=== PATIENT | female | born 1980 | race Caucasian/White ===

== ENCOUNTER 2017-04-23 12:22 | Inpatient (IN) | payer OTHER ==
[2017-04-23] MEDS ORDERED: BRETHINE SUB-Q PRN (13:12)
[2017-04-23] MEDS ORDERED: BRETHINE IVP PRN (13:12)
[2017-04-23] MEDS ORDERED: ePHEDrine SULFATE IV PRN ×2 (13:12→15:10)
--- NOTE | 2017-04-23 13:18 | History and Physical Report ---
History of Present Illness Date of examination: 04/23/17 Date of admission: 04/23/17 Chief complaint: 40 weeks with contractions. History of present illness: Patient is a 36 year old , LMP 07/17/16, EDC 04/23/17 at 40 weeks who presented to triage complaining of having contractions since 5 AM today. She denies any fluid leakage or bleeding. She reports good movement. tracing is CAT 1. She receives PNC at [facility] clinic. Past History Past Surgical History: no surgical history Social history: no significant social history - Obstetrical History Expected Date of Delivery: 04/23/17 Actual Gestation: 40 Week(s) 0 Day(s) : 4 Para: 2 Spontaneous Abortions: 1 Number of Living Children: 2 Medications and Allergies Allergies Allergy/AdvReac Type Severity Reaction Status Date / Time No Known Allergies Allergy Unverified 04/23/17 12:59 - Vital Signs Vital signs: Vital Signs Pulse BP 77 114/55 04/23/17 12:50 04/23/17 12:50 Temp Pulse Resp BP Pulse Ox 98.8 F 77 18 114/55 04/23/17 12:51 04/23/17 12:50 04/23/17 12:51 04/23/17 12:50 - Physical Exam Cardiovascular: Normal S1, Normal S2 Lungs: Positive: Clear to auscultation Vulva: both: normal Deep Tendon Reflex Grade: Normal +2 - Obstetrical FHR: category 1 Uterine Contraction Monitor Mode: External Cervical Dilatation: 7 Cervical Effacement Percentage: 90 station: -2 Uterine Contraction Pattern: Regular Results All other labs normal. Assessment and Plan - Patient Problems (1) 40 weeks gestation of Current Visit: Yes Status: Acute (2) Active labor Current Visit: Yes Status: Acute Plan to address problem: Admit to labor floor. Routine admitting labs. IV fluid. and toco monitoring. Anticipate . (3) Anemia Current Visit: Yes Status: Acute (4) Advanced maternal age (AMA) in Current Visit: Yes Status: Acute
[2017-04-23 13:53] LABS: Hematocrit 28.6 % (30.3-42.9); Hemoglobin 8.5 gm/dl (10.1-14.3); Mean Corpuscular HGB Conc 30 % (30-34); Platelet Count 484 K/mm3 (140-440); Red Blood Count 4.27 M/mm3 (3.65-5.03)
[2017-04-23 13:57] LABS: Mean Corpuscular Hemoglobin 20 pg (28-32); Mean Corpuscular Volume 67 fl (79-97); Red Cell Distribution Width 23.4 % (13.2-15.2)
[2017-04-23] MEDS ORDERED: PITOCin/NS 30 UNIT/500ML 30 UNITS/500 ML BAG IV SCH (14:00)
[2017-04-23] MEDS ORDERED: LACTATED RINGERS 1,000 ML IV SCH (14:00)
[2017-04-23] MEDS ORDERED: PITOCin/NS 20 UNIT/1000ML DRIP 20 UNITS/1,000 ML BAG IV SCH ×2 (14:00→20:00)
[2017-04-23] MEDS ORDERED: XYLOCAINE 2% INFILTRATI ONE (14:00)
[2017-04-23] MEDS ORDERED: NARCAN 2 MG/2 ML IV PRN (15:10)
--- NOTE | 2017-04-23 15:12 | Anesthesia Consultation ---
Anesthesia Consult and Med Hx Date of service: 04/23/17 - Airway Anesthetic Teeth Evaluation: Good ROM Head & Neck: Adequate Mental/Hyoid Distance: Adequate Mallampati Class: Class I Intubation Access Assessment: Good - Pulmonary Exam CTA: Yes - Cardiac Exam Cardiac Exam: RRR - Pre-Operative Health Status ASA Pre-Surgery Classification: ASA2 - Pulmonary Hx Asthma: No COPD: No Hx Pneumonia: No - Cardiovascular System Hx Hypertension: No - Central Nervous System Hx Seizures: No Hx Psychiatric Problems: No - Endocrine Hx Renal Disease: No Hx End Stage Renal Disease: No Hx Hypothyroidism: No Hx Hyperthyroidism: No - Hematic Hx Anemia: Yes Hx Sickle Cell Disease: No - Other Systems Hx Alcohol Use: No
--- NOTE | 2017-04-23 16:33 | Progress Note ---
Assessment and Plan - Patient Problems (1) 40 weeks gestation of Current Visit: Yes Status: Acute (2) Active labor Current Visit: Yes Status: Acute Plan to address problem: AROM perfomed. Clear fluid. Continue and toco monitoring. Anticipate . (3) Anemia Current Visit: Yes Status: Acute Qualifiers: Anemia type: iron deficiency (4) Advanced maternal age (AMA) in Current Visit: Yes Status: Acute Subjective - Subjective Date of service: 04/23/17 Principal diagnosis: Active labor Interval history: Patient is a 36 year old , LMP 07/17/16, EDC 04/23/17 at 40 weeks who was admitted for active labor. Tracing has been CAT1. [place]: Q2-3 mins. Cervix: 8cm/100/-2. AROM performed, clear fluid. Objective - Vital Signs Vital Signs: Vital Signs - 12hr 04/23/17 04/23/17 04/23/17 12:50 12:51 13:59 Temperature 98.8 F Pulse Rate 77 79 Respiratory 18 Rate Blood Pressure 114/55 O2 Sat by Pulse 96 Oximetry 04/23/17 04/23/17 04/23/17 14:04 14:09 14:14 Temperature Pulse Rate 77 80 72 Respiratory Rate Blood Pressure O2 Sat by Pulse 97 96 96 Oximetry 04/23/17 04/23/17 04/23/17 14:19 14:24 14:29 Temperature Pulse Rate 74 72 79 Respiratory Rate Blood Pressure O2 Sat by Pulse 97 97 96 Oximetry 04/23/17 04/23/17 04/23/17 14:34 14:39 14:44 Temperature Pulse Rate 77 76 77 Respiratory Rate Blood Pressure O2 Sat by Pulse 97 96 96 Oximetry 04/23/17 04/23/17 04/23/17 14:49 14:50 14:54 Temperature Pulse Rate 84 84 83 Respiratory Rate Blood Pressure O2 Sat by Pulse 95 94 96 Oximetry 04/23/17 04/23/17 04/23/17 14:56 14:59 15:03 Temperature Pulse Rate 88 86 79 Respiratory Rate Blood Pressure O2 Sat by Pulse 94 96 94 Oximetry 04/23/17 04/23/17 04/23/17 15:04 15:09 15:10 Temperature Pulse Rate 84 72 83 Respiratory Rate Blood Pressure O2 Sat by Pulse 96 97 93 Oximetry 04/23/17 04/23/1718 15:14 15:17 15:21 Temperature Pulse Rate 79 85 71 Respiratory Rate Blood Pressure O2 Sat by Pulse 97 94 98 Oximetry 04/23/17 04/23/17 04/23/17 15:25 15:26 15:27 Temperature Pulse Rate 64 72 80 Respiratory Rate Blood Pressure 116/56 102/52 O2 Sat by Pulse 99 Oximetry 04/23/17 04/23/17 04/23/17 15:29 15:31 15:33 Temperature Pulse Rate 82 70 70 Respiratory Rate Blood Pressure 104/55 107/56 100/52 O2 Sat by Pulse 97 Oximetry 04/23/17 04/23/17 04/23/17 15:35 15:36 15:37 Temperature Pulse Rate 82 77 73 Respiratory Rate Blood Pressure 103/51 99/51 O2 Sat by Pulse 98 Oximetry 04/23/17 04/23/17 04/23/17 15:39 15:41 15:43 Temperature Pulse Rate 86 75 88 Respiratory Rate Blood Pressure 104/54 103/55 104/59 O2 Sat by Pulse 98 Oximetry 04/23/17 04/23/17 04/23/17 15:45 15:46 15:47 Temperature Pulse Rate 80 84 85 Respiratory Rate Blood Pressure 107/54 93/49 O2 Sat by Pulse 99 Oximetry 04/23/17 04/23/17 04/23/17 15:49 15:51 15:56 Temperature Pulse Rate 88 83 83 Respiratory Rate Blood Pressure 97/49 92/51 O2 Sat by Pulse 99 99 Oximetry 04/23/17 04/23/17 04/23/17 16:01 16:06 16:08 Temperature Pulse Rate 79 84 82 Respiratory Rate Blood Pressure 96/53 O2 Sat by Pulse 99 99 Oximetry 04/23/17 04/23/17 04/23/17 16:11 16:16 16:21 Temperature Pulse Rate 74 78 77 Respiratory Rate Blood Pressure O2 Sat by Pulse 98 98 98 Oximetry 04/23/17 04/23/17 04/23/17 16:22 16:26 16:31 Temperature Pulse Rate 72 76 88 Respiratory Rate Blood Pressure 91/51 O2 Sat by Pulse 98 96 Oximetry - Exam Cardiovascular: Normal S1, Normal S2 Lungs: Clear to auscultation Vulva: both: normal FHR: category 1 Uterine Contraction Monitor Mode: External Cervical Dilatation: 8 Cervical Effacement Percentage: 100 station: -2 Uterine Contraction Pattern: Regular Uterine Contraction Intensity: Strong/Firm Deep Tendon Reflex Grade: Normal +2 - Labs Labs: Abnormal Labs 04/23/17 13:15 WBC 14.2 H Hgb 8.5 L Hct 28.6 L MCV 67 L MCH 20 L RDW 23.4 H Plt Count 484 H Laboratory Results - last 24 hr 04/23/17 04/23/17 13:15 13:15 WBC 14.2 H RBC 4.27 Hgb 8.5 L Hct 28.6 L MCV 67 L MCH 20 L MCHC 30 RDW 23.4 H Plt Count 484 H Blood Type O POSITIVE Antibody Screen Negative
[2017-04-23] MEDS ORDERED: fentaNYL-BUPIV 2 MCG/ML-0.125% 200 MCG/100 ML BAG EPIDURAL SCH (17:00)
[2017-04-23] MEDS ORDERED: TYLENOL PO PRN (19:34)
[2017-04-23] MEDS ORDERED: ZOFRAN IV PRN (19:34)
[2017-04-23] MEDS ORDERED: TUCKS PAD TP PRN (19:34)
[2017-04-23] MEDS ORDERED: LANSINOH TP PRN (19:34)
[2017-04-23] MEDS ORDERED: DULCOLAX PR PRN (19:34)
[2017-04-23] MEDS ORDERED: BENADRYL PO PRN (19:34)
[2017-04-23] MEDS ORDERED: PHENERGAN PO PRN (19:34)
[2017-04-23] MEDS ORDERED: PHENERGAN PR PRN (19:34)
[2017-04-23] MEDS ORDERED: MILK OF MAGNESIA PO PRN (19:34)
--- NOTE | 2017-04-23 19:40 | Procedure Note ---
OB Delivery Note - Delivery Date of Delivery: 04/23/17 Surgeon: SUE HOLLIDAY Estimated blood loss: 200cc - Vaginal Delivery presentation: vertex Delivery position: OA Intrapartum events: none Delivery induction: none Delivery augmentation: rupture of membranes Delivery monitor: external FHT Route of delivery: Delivery placenta: spontaneous Delivery cord: 3 umbilical vessels Episiotomy: none Delivery laceration: 1st degree Delivery repair: vicryl Anesthesia: epidural Delivery comments: Patient became fully dilated. She delivered via normal spontaneous vaginal delivery a live female infant from an BENNIE position with Apgars of 8 at 1 min and 9 at 5 mins at 7:13 PM. Bulb suction of mouth and nose, cord clamped and cut , cord blood collected. The placenta was delivered spontaneously and it was complete with a 3-vessel cord. No episiotomy was given. A small perineal laceration was sustained which was repaired with 2 vicryl sutures. EBL was about 250 cc. Peds were notified. Patient remains stable.
[2017-04-23] MEDS ORDERED: SODIUM CHLORIDE FLUSH SYRINGE 10 ML IV SCH (20:00)
[2017-04-23] MEDS: PERCOCET 5/325 PO PRN (22:13)
[2017-04-23] MEDS: MOTRIN PO SCH (22:16)
[2017-04-24] MEDS: MOTRIN PO SCH ×2 (06:20→14:53)
[2017-04-24 08:39] LABS: Hematocrit 23.9 % (30.3-42.9); Hemoglobin 7.2 gm/dl (10.1-14.3)
--- NOTE | 2017-04-24 09:18 | Progress Note ---
Subjective Date of service: 04/24/17 Principal diagnosis: Active labor Interval history: Patient has no complain. Block has receded. Ambulating without any problem Objective - Constitutional Vitals: Vital Signs - 12hr 04/23/17 04/23/17 04/24/17 21:22 22:15 00:30 Temperature 98.6 F 98.4 F Pulse Rate 75 66 71 Respiratory 16 18 Rate Blood Pressure 111/55 Blood Pressure 101/69 101/53 [Left] 04/24/17 04:00 Temperature 98.6 F Pulse Rate 66 Respiratory 16 Rate Blood Pressure Blood Pressure 104/59 [Left] - Labs CBC & Chem 7: 04/23/17 13:15 Labs: Abnormal lab results 04/23/17 Range/Units 13:15 WBC 14.2 H (4.5-11.0) K/mm3 Hgb 8.5 L (10.1-14.3) gm/dl Hct 28.6 L (30.3-42.9) % MCV 67 L (79-97) fl MCH 20 L (28-32) pg RDW 23.4 H (13.2-15.2) % Plt Count 484 H (140-440) K/mm3
--- NOTE | 2017-04-24 10:45 | Progress Note ---
Assessment and Plan - Patient Problems (1) 40 weeks gestation of Current Visit: Yes Status: Acute (2) Advanced maternal age (AMA) in Current Visit: Yes Status: Acute (3) (normal spontaneous vaginal delivery) Current Visit: Yes Status: Acute Plan to address problem: Pt is doing well. She wants to go home today. She as advised to f/u in 6 weeks in the clinic. Subjective - Subjective Date of service: 04/24/17 Principal diagnosis: Active labor Interval history: Patient is a 36 year old S/P , PPD#1. She denies any complaint. She has been ambulating without any dizziness or chest pain. She wants to go home today. Objective - Vital Signs Latest vital signs: Vital Signs Temp Pulse Resp BP BP Pulse Ox 04/24/17 08:32 98.3 F 78 18 107/52 97 04/24/17 04:00 98.6 F 66 16 104/59 04/24/17 00:30 98.4 F 71 18 101/53 04/23/17 22:15 98.6 F 66 16 101/69 04/23/17 21:22 75 111/55 04/23/17 20:52 83 105/52 04/23/17 20:37 88 124/59 04/23/17 20:22 84 122/57 04/23/17 20:07 85 112/56 04/23/17 19:52 78 110/56 04/23/17 19:37 87 120/57 04/23/17 19:22 92 H 119/57 04/23/17 19:07 82 122/60 04/23/17 18:53 73 130/60 04/23/17 18:51 81 99 04/23/17 18:46 66 98 04/23/17 18:41 67 98 04/23/17 18:37 77 105/61 04/23/17 18:36 90 97 04/23/17 18:31 89 96 04/23/17 18:26 89 94 04/23/17 18:22 77 105/60 04/23/17 18:21 84 100 04/23/17 18:16 85 98 04/23/17 18:11 84 96 04/23/17 18:08 84 111/65 04/23/17 18:06 80 98 04/23/17 18:01 78 99 04/23/17 17:56 74 99 04/23/17 17:53 81 115/57 04/23/17 17:51 76 98 04/23/17 17:46 76 97 04/23/17 17:41 72 98 04/23/17 17:38 80 123/59 04/23/17 17:36 76 97 04/23/17 17:31 78 97 04/23/17 17:26 69 98 04/23/17 17:23 75 111/54 04/23/17 17:21 78 98 04/23/17 17:16 70 98 04/23/17 17:11 74 98 04/23/17 17:07 75 117/56 04/23/17 17:06 79 98 04/23/17 17:01 80 97 04/23/17 16:56 76 99 04/23/17 16:52 80 120/64 04/23/17 16:51 73 98 04/23/17 16:46 84 97 04/23/17 16:41 77 98 04/23/17 16:37 71 101/55 04/23/17 16:36 80 98 04/23/17 16:33 98.1 F 16 04/23/17 16:31 88 96 04/23/17 16:26 76 98 04/23/17 16:22 72 91/51 04/23/17 16:21 77 98 04/23/17 16:16 78 98 04/23/17 16:11 74 98 04/23/17 16:08 82 96/53 04/23/17 16:06 84 99 04/23/17 16:01 79 99 04/23/17 15:56 83 99 04/23/17 15:51 83 92/51 99 04/23/17 15:49 88 97/49 04/23/17 15:47 85 93/49 04/23/17 15:46 84 99 04/23/17 15:45 80 107/54 04/23/17 15:43 88 104/59 18 15:41 75 103/55 98 04/23/17 15:39 86 104/54 04/23/17 15:37 73 99/51 04/23/17 15:36 77 98 04/23/17 15:35 82 103/51 04/23/17 15:33 70 100/52 04/23/17 15:31 70 107/56 97 04/23/17 15:29 82 104/55 04/23/17 15:27 80 102/52 04/23/17 15:26 72 99 04/23/17 15:25 64 116/56 04/23/17 15:21 71 98 04/23/17 15:17 85 94 04/23/17 15:14 79 97 04/23/17 15:10 83 93 04/23/17 15:09 72 97 04/23/17 15:04 84 96 04/23/17 15:03 79 94 04/23/17 14:59 86 96 04/23/17 14:56 88 94 04/23/17 14:54 83 96 04/23/17 14:50 84 94 04/23/17 14:49 84 95 04/23/17 14:44 77 96 04/23/17 14:39 76 96 04/23/17 14:34 77 97 04/23/17 14:29 79 96 04/23/17 14:24 72 97 04/23/17 14:19 74 97 04/23/17 14:14 72 96 04/23/17 14:09 80 96 04/23/17 14:04 77 97 04/23/17 13:59 79 96 04/23/17 12:51 98.8 F 18 04/23/17 12:50 77 114/55 Intake and Output 04/23/17 04/24/17 04/24/17 23:59 07:59 15:59 Intake Total 240 Output Total 750 Balance -750 240 Intake: Oral 120 Intake, Free Water 120 Output: Urine 750 Void 750 Other: Total, Intake Amount 120 Total, Output Amount 150 # Voids Void 1 1 Estimated Blood Loss 250 - Exam Cardiovascular: Present: Normal S1, Normal S2 Lungs: Present: Clear to auscultation Vulva: both: normal Deep Tendon Reflex Grade: Normal +2 - Labs Labs: Abnormal lab results 04/23/17 04/24/17 Range/Units 13:15 08:16 WBC 14.2 H (4.5-11.0) K/mm3 Hgb 8.5 L 7.2 L (10.1-14.3) gm/dl Hct 28.6 L 23.9 L (30.3-42.9) % MCV 67 L (79-97) fl MCH 20 L (28-32) pg RDW 23.4 H (13.2-15.2) % Plt Count 484 H (140-440) K/mm3
--- NOTE | 2017-04-24 10:48 | Discharge Summary ---
Providers - Providers Date of Admission: 04/23/17 12:23 Date of discharge: 04/24/17 Attending physician: SUE HOLLIDAY MD Primary care physician: SUE HOLLIDAY MD Hospitalization Delivery: Episiotomy: none Laceration: 1st degree Other procedures: none Hospital course: Patient did well . She has anemia and current H/H is 7.2/23.9. She has been asymptomatic. She is on iron TID. She wants to go home today. Condition at discharge: Stable Disposition: DC-01 TO HOME OR SELFCARE - Discharge Diagnoses (1) 40 weeks gestation of Status: Acute (2) Advanced maternal age (AMA) in Status: Acute (3) (normal spontaneous vaginal delivery) Status: Acute Plan - Provider Discharge Summary Activity: routine Diet: routine Instructions: routine Additional instructions: [] Smoking cessation referral if applicable(refer to patient education folder for contact #) [] Refer to [facility]'s [facility] Booklet Call your doctor immediately for: * Fever > 100.5 * Heavy vaginal bleeding ( >1 pad per hour) * Severe persistent headache * Shortness of breath * Reddened, hot, painful area to leg or breast * Drainage or odor from incision. * Keep incision clean and dry at all times and follow doctor's instructions regarding bathing/showering - Follow up plan Follow up: SUE HOLLIDAY MD [Primary Care Provider] - 7 Days
[2017-04-24] MEDS: PERCOCET 5/325 PO PRN (14:54)
[2017-04-24 17:58] VITALS: BP 110/54
== END 2017-04-24 20:55 | disposition home or self-care (01) | DRG 775 ==
LOC: TRG 12:22 → LD 12:23 → OB 21:39
PROVIDERS: ADMIT Obstetrics & Gynecology; ATTEND Obstetrics & Gynecology
PROC: 10907ZC Drainage of Amniotic Fluid, Therapeutic from Products of Conception, Via Natural or Artificial Opening (ICD-10-PCS; principal; 2017-04-23)
PROC: 10E0XZZ Delivery of Products of Conception, External Approach (ICD-10-PCS; 2017-04-23)
PROC: 0HQ9XZZ Repair Perineum Skin, External Approach (ICD-10-PCS; 2017-04-23)
PROC: 3E0R3BZ Introduction of Anesthetic Agent into Spinal Canal, Percutaneous Approach (ICD-10-PCS; 2017-04-23)
PROC: 00HU33Z Insertion of Infusion Device into Spinal Canal, Percutaneous Approach (ICD-10-PCS; 2017-04-23)
DX: O99.02 Anemia complicating childbirth (principal); D64.9 Anemia, unspecified; O70.0 First degree perineal laceration during delivery; Z3A.40 40 weeks gestation of pregnancy; Z37.0 Single live birth
CPT/HCPCS: 36415; 85014; 85018; 85027; 86592; 86850; 86900; 86901; J2590; J7120